=== PATIENT | female | born 1980 | race Two or more races ===

== ENCOUNTER 2022-05-22 14:55 | Observation (INO) | payer MEDICAID, OTHER ==
[2022-05-22] MEDS ORDERED: PREN-96 PO (16:24)
== END 2022-05-22 17:00 | disposition home or self-care (01) ==
LOC: LDRP 14:55
PROVIDERS: ADMIT Obstetrics & Gynecology; ATTEND Obstetrics & Gynecology
DX: O26.893 Other specified pregnancy related conditions, third trimester (principal); R10.9 Unspecified abdominal pain; Z3A.40 40 weeks gestation of pregnancy
CPT/HCPCS: 59025; 81002; 94760; G0378

== ENCOUNTER 2025-03-27 01:42 | Emergency (ER) | payer MEDICAID, OTHER ==
[~2025-03-27] VITALS: Ht 165.1 cm; Wt 71.4 kg
[2025-03-27 01:42] VITALS: BP 108/61; PULSE 91; RESP 20; TEMP 98.7; O2SAT 96
[~2025-03-27 01:42] MED LIST: PREN-96 PO
[2025-03-27 02:27] LABS: Urine Bacteria None Seen /hpf (None Seen)
[2025-03-27 02:30] LABS: Basophils # (auto) 0.1 10 ^3/uL (0-0.2); Basophils % (auto) 0.6 % (0.0-2.0); Eosinophils # (auto) 0.4 10 ^3/uL (0-0.8); Hematocrit 40.6 % (36.0-46.0); Lymphocytes # (auto) 2.1 10 ^3/uL (0.4-5.4); Lymphocytes % (auto) 23.8 % (10.0-50.0); Mean Corpuscular Hemoglobin 30.7 pg (28.0-32.0); Mean Corpuscular Hgb Conc. 34.6 g/dL (32.0-36.0); Mean Corpuscular Volume 88.7 fL (80.0-100.0); Monocytes # (auto) 0.6 10 ^3/uL (0-1.3); Monocytes % (auto) 6.6 % (0.0-12.0); Neutrophils # (auto) 5.6 10 ^3/uL (1.6-8.6); Platelet Count (auto) 300 10^3/uL (140-450); Red Blood Cells 4.57 10^6/uL (4.0-5.20); Red Cell Distribution Width 12.8 % (11.8-14.3); White Blood Cell 8.7 10^3/uL (4.4-10.8)
[2025-03-27 02:35] LABS: Urine Blood 3+ /uL (Negative); Urine Clarity Clear (Clear); Urine Color Colorless (Yellow); Urine Mucus FEW (None Seen); Urine Protein, UAD Negative (Negative); Urine Specific Gravity 1.024 (1.001-1.035); Urine Squamous Epithelial Cell FEW /hpf (<5); Urine Urobilinogen Normal (Negative); Urine WBC 4 /HPF (0-5); Urine pH 5.5 (5.0-9.0)
[2025-03-27 02:38] LABS: Anion Gap 10 (5-15); Carbon Dioxide 24 mmol/L (20-31); Chloride 107 mmol/L (98-107); Potassium 3.5 mmol/L (3.5-5.1); Sodium 141 mmol/L (136-145)
[2025-03-27 02:39] LABS: Calcium 9.8 mg/dL (8.7-10.4)
[2025-03-27 02:44] LABS: BUN/Creatinine Ratio 15.4 (10.0-20.0)
[2025-03-27 02:57] LABS: Blood Urea Nitrogen 8 mg/dL (9-23); Glucose 134 mg/dL (74-106)
--- NOTE | 2025-03-27 04:00 | ED.PDOC ---
History of Present Illness HPI Comments 44 y/o F presents with lower abdominal cramping and mild, abnormal vaginal bleeding. Patient is a Bangladeshi speaker and a poor historian. She states on coming to the ED, due to never seeing a doctor often and wanting to check her status after testing positive with an at-home test, recently. Endorses on this being her tenth (G10, P4, Ab5). Denies any urinary symptoms, nausea, vomiting, fever, or further associated symptoms. 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 Para 4 AB 5 LMP 03/03/25 Family History Family History: Unknown Social History Smoker: Non-Smoker Alcohol: Denies ETOH Use Drugs: Denies Drug Use Lives In: Home All Other Systems: Reviewed and Negative (Comprehensive systems review obtained and negative except for what is stated in the HPI.) Physical Exam General Appearance: No Apparent Distress, Normal HEENT: Normal ENT Inspection, Pharynx Normal, TMs Normal Neck: Full Range of Motion, Non-Tender, Normal, Normal Inspection Respiratory: Chest Non-Tender, Lungs Clear, No Accessory Muscle Use, No Respiratory Distress, Normal Breath Sounds Cardiovascular: No Edema, No JVD, No Murmur, No Gallop, Normal Peripheral Pulses, Regular Rate/Rhythm Breast Exam: Deferred Gastrointestinal: No Organomegaly, Non Tender, No Pulsatile Mass, Normal Bowel Sounds, Soft Genitalia: Deferred Pelvic: Deferred Rectal: Deferred Extremities: No calf tenderness, Normal capillary refill, Normal inspection, Normal range of motion, Non-tender, No pedal edema Musculoskeletal : Apperance: Normal Neurologic: Alert, 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 Was a procedure done?: No Differential Dx Considerations may include: at risk , ovarian cysts, ovarian torsion, ectopic , among others X-Ray, Labs, Meds, VS Vital Signs Date Time Temp Pulse Resp B/P (MAP) Pulse Ox O2 Delivery O2 Flow Rate FiO2 03/27/25 01:42 98.7 91 20 108/61 (77) 96 98.7 Lab Test 03/27/25 02:17 03/27/25 02:07 Range/Units White Blood Count 8.7 4.4-10.8 10^3/uL Red Blood Count 4.57 4.0-5.20 10^6/uL Hemoglobin 14.0 12.2-16.2 g/dL Hematocrit 40.6 36.0-46.0 % Mean Corpuscular Volume 88.7 80.0-100.0 fL Mean Corpuscular Hemoglobin 30.7 28.0-32.0 pg Mean Corpuscular Hemoglobin Concent 34.6 32.0-36.0 g/dL Red Cell Distribution Width 12.8 11.8-14.3 % Platelet Count 300 140-450 10^3/uL Mean Platelet Volume 7.6 6.9-10.8 fL Neutrophils (%) (Auto) 65.0 37.0-80.0 % Lymphocytes (%) (Auto) 23.8 10.0-50.0 % Monocytes (%) (Auto) 6.6 0.0-12.0 % Eosinophils (%) (Auto) 4.0 0.0-7.0 % Basophils (%) (Auto) 0.6 0.0-2.0 % Neutrophils # (Auto) 5.6 1.6-8.6 10 ^3/uL Lymphocytes # (Auto) 2.1 0.4-5.4 10 ^3/uL Monocytes # (Auto) 0.6 0-1.3 10 ^3/uL Eosinophils # (Auto) 0.4 0-0.8 10 ^3/uL Basophils # (Auto) 0.1 0-0.2 10 ^3/uL Nucleated Red Blood Cells 0.0 % Sodium Level 141 136-145 mmol/L Potassium Level 3.5 3.5-5.1 mmol/L Chloride Level 107 98-107 mmol/L Carbon Dioxide Level 24 20-31 mmol/L Anion Gap 10 5-15 Blood Urea Nitrogen 8 L 9-23 mg/dL Creatinine 0.52 L 0.550-1.02 mg/dL Glomerular Filtration Rate Calc 117 >90 mL/min BUN/Creatinine Ratio 15.4 10.0-20.0 Serum Glucose 134 H 74-106 mg/dL Calcium Level 9.8 8.7-10.4 mg/dL Beta HCG, Quantitative 2760.6 H 1.5-4.2 mIU/mL Urine Color Colorless Yellow Urine Clarity Clear Clear Urine pH 5.5 5.0-9.0 Urine Specific [place] 1.024 1.001-1.035 Urine Protein Negative Negative Urine Ketones Negative Negative Urine Blood 3+ H Negative /uL Urine Nitrite Negative Negative Urine Bilirubin Negative Negative Urine Urobilinogen Normal Negative mg/dL Urine Leukocyte Esterase Negative Negative /uL Urine RBC 467 0 - 4 /hpf Urine Microscopic WBC 4 0-5 /HPF Urine Squamous Epithelial Cells Few <5 /hpf Urine Bacteria None seen None Seen /hpf Urine Mucus Few None Seen Urine Glucose Normal Normal mg/dL Time of 1ST Reevaluation: 02:40 Reevaluation 1ST: Unchanged Patient Education/Counseling: Diagnosis, Treatment, Need For Follow Up Family Education/Counseling: No Family Present Departure 1 Departure Time of Disposition: 04:25 (Patient likely with threatened miscarriage. We will discharge patient home with outpatient follow up) Impression: Primary Impression: Threatened miscarriage Disposition: 01 HOME / SELF CARE / HOMELESS Condition: Stable Referrals: EDMUNDO SALAZAR DO Additional Instructions: You have a threatened miscarriage. Your beta hcg level today was 2760. You should follow up with OBGYN within three days to recheck your blood work. If your symptoms worsen or you have any other concerns then please return to the ER. Critical Care Note Critical Care Time?: No Stability Stability form required: No Heart Score Heart Score: Heart Score Response (Comments) Value History N/A 0 EKG N/A 0 Age N/A 0 Risk Factors N/A 0 Troponin N/A 0 Total 0 I personally scribed for NARA VANCE MD ([email or web address]) on 03/27/25 at 04:00. Electronically submitted by Zachery Lema ([email or web address]). NARA VANCE MD Mar 27, 2025 04:00
[2025-03-27] MEDS ORDERED: CEPH250C PO (13:02)
== END 2025-03-27 05:25 | disposition home or self-care (01) ==
LOC: ER 01:46
DX: O20.0 Threatened abortion (principal); Z3A.01 Less than 8 weeks gestation of pregnancy
CPT/HCPCS: 36415; 80048; 81001; 84702; 85025; 86900; 86901

== ENCOUNTER 2025-03-27 09:22 | Emergency (ER) | payer OTHER ==
[~2025-03-27] VITALS: Ht 165.1 cm; Wt 69.8 kg
[2025-03-27 09:59] LABS: Basophils # (auto) 0.1 10 ^3/uL (0-0.2); Basophils % (auto) 0.7 % (0.0-2.0); Eosinophils # (auto) 0.3 10 ^3/uL (0-0.8); Eosinophils % (auto) 4.2 % (0.0-7.0); Hematocrit 38.6 % (36.0-46.0); Hemoglobin 13.3 g/dL (12.2-16.2); Lymphocytes # (auto) 1.7 10 ^3/uL (0.4-5.4); Lymphocytes % (auto) 22.6 % (10.0-50.0); Mean Corpuscular Hemoglobin 30.5 pg (28.0-32.0); Mean Corpuscular Hgb Conc. 34.4 g/dL (32.0-36.0); Mean Corpuscular Volume 88.5 fL (80.0-100.0); Monocytes # (auto) 0.5 10 ^3/uL (0-1.3); Monocytes % (auto) 7.4 % (0.0-12.0); Neutrophils # (auto) 4.8 10 ^3/uL (1.6-8.6); Neutrophils % (auto) 65.1 % (37.0-80.0); Platelet Count (auto) 278 10^3/uL (140-450); Red Blood Cells 4.36 10^6/uL (4.0-5.20); Red Cell Distribution Width 12.6 % (11.8-14.3); White Blood Cell 7.4 10^3/uL (4.4-10.8)
[2025-03-27 10:13] LABS: Urine Bacteria None Seen /hpf (None Seen)
[2025-03-27 10:23] LABS: Urine Blood 3+ /uL (Negative); Urine Clarity Turbid (Clear); Urine Color Light-Orange (Yellow); Urine Mucus MODERATE (None Seen); Urine Protein, UAD 1+ (Negative); Urine Specific Gravity 1.029 (1.001-1.035); Urine Squamous Epithelial Cell FEW /hpf (<5); Urine Urobilinogen Normal (Negative); Urine WBC 23 /HPF (0-5); Urine pH 5.5 (5.0-9.0)
--- NOTE | 2025-03-27 10:56 | ED.PDOC ---
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 Patient states she was seen in this ED earlier today (03/27/25), noticed bleeding has worsen, returned to ED. Patient states she is currently , does not know how far along, recently tested positive with an at home test. P:4 A:5. Denies any PMHx as well as headache, dizziness, nausea, vomiting, diarrhea, chest pain,shortness of breath. No other symptoms or modifying factors present at this time. Chief Complaint: Vaginal Bleed Time Seen by MD: 10:40 Reviewed Notes: Medications, Allergies Allergies: Coded Allergies: NO KNOWN ALLERGIES (Unverified , 05/22/22) Home Meds Active Scripts Cephalexin (KEFLEX CAPSULE) 250 Mg Cp, 250 MG PO QID for 5 Days, #20 BOTTLE Prov:GILBERT RODRÍGUEZ MD 03/27/25 Reported Medications Vit W/ Ferrous Fumara ( One Daily) Daily Tab, 1 TAB PO DAILY, #90 TAB 3 Refills 05/22/22 Information Source: Patient Mode of Arrival: Ambulatory Timing: Hours Prehospital treatment: None Severity: Moderate Vaginal Discharge: None Vaginal Lesions: None Bleeding Quality: Bright Red, Clotted Vaginal Mass: None Onset Of Mass/Bleeding: Spontaneous Sexual Activity: Last Consensual [place]: Unknown Control: None History of: Current Symptoms of Possible : Missed Period Associated Signs and Symptoms: Vaginal Bleeding, Abdominal Pain Past Medical History PAST MEDICAL HISTORY: Denies Surgical History: Denies all surgeries RN BARIATRIC History: Denies all RN BARIATRIC Hx Family History Family History: Unknown Social History Smoker: Non-Smoker Alcohol: Denies ETOH Use Drugs: Denies Drug Use Lives In: Home Constitutional: denies: chills, diaphoresis, fatigue, fever, malaise, sweats, weakness, others EENTM: denies: blurred vision, double vision, ear bleeding, ear discharge, ear drainage, ear pain, ear ringing, eye pain, eye redness, hearing loss, mouth pain, mouth swelling, nasal discharge, nose bleeding, nose congestion, nose pain, photophobia, tearing, throat pain, throat swelling, voice changes, others Respiratory: denies: cough, hemoptysis, orthopnea, SOB at rest, shortness of breath, SOB with excertion, stridor, wheezing, others Cardiovascular: denies: chest pain, dizzy spells, diaphoresis, Dyspnea on exertion, edema, irregular heart beat, left arm pain, lightheadedness, palpita tions, PND, syncope, others Gastrointestinal: reports: abdominal pain; denies: abdomen distended, blood streaked bowels, constipated, diarrhea, dysphagia, difficulty swallowing, hematemesis, melena, nausea, poor appetite, poor fluid intake, rectal bleeding, rectal pain, vomiting, others Genitourinary: reports: abnormal vagina bleeding, ; denies: burning, dyspareunia, dysuria, flank pain, frequency, hematuria, incontinence, pain, vagina discharge, urgency, others Neurological: denies: dizziness, fainting, headache, left sided numbness, left sided weakness, numbness, paresthesia, pre-existing deficit, right sided numbness, right sided weakness, seizure, speech problems, tingling, tremors, weakness, others Musculoskeletal: denies: back pain, gout, joint pain, joint swelling, muscle pain, muscle stiffness, neck pain, others Integumetry: denies: bruises, change in color, change in hair/nails, dryness, laceration, lesions, lumps, rash, wounds, others Allergic/Immunocompromised: denies: Difficulty Healing, Frequent Infections, Hives, Itching, others Hematologic/Lymphatic: denies: anemia, blood clots, easy bleeding, easy bruising, swollen glands, others Endocrine: denies: excessive hunger, excessive sweating, excessive thirst, excessive urination, flushing, intolerance to cold, intolerance to heat, unexplained weight gain, unexplained weight loss, others Psychiatric: denies: anxiety, bipolar disorder, depression, hopeless, panic disorder, schizophrenia, sleepless, suicidal, others All Other Systems: Reviewed and Negative Physical Exam General Appearance: Moderate Distress, Normal HEENT: Normal ENT Inspection, Pharynx Normal, TMs Normal Neck: Full Range of Motion, Non-Tender, Normal, Normal Inspection Respiratory: Chest Non-Tender, Lungs Clear, No Accessory Muscle Use, No Respiratory Distress, Normal Breath Sounds Cardiovascular: No Edema, No JVD, No Murmur, No Gallop, Normal Peripheral Pulses, Regular Rate/Rhythm Breast Exam: Deferred Gastrointestinal: No Organomegaly, Non Tender, No Pulsatile Mass, Normal Bowel Sounds, Soft Genitalia: Deferred Pelvic: Deferred Rectal: Deferred Extremities: No calf tenderness, Normal capillary refill, Normal inspection, Normal range of motion, Non-tender, No pedal edema Musculoskeletal : Apperance: Normal Neurologic: Alert, 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 Was a procedure done?: No Differential Diagnosis (RN BARIATRIC) Vaginal Bleeding: - Complete, - Incomplete, - In evitable, - Missed, - Threatened X-Ray, Labs, Meds, VS Vital Signs Date Time Temp Pulse Resp B/P (MAP) Pulse Ox O2 Delivery O2 Flow Rate FiO2 03/27/25 12:42 98.3 78 16 137/68 (91) 98 98.3 03/27/25 10:26 80 16 95 Room Air 03/27/25 10:26 98.3 94 16 134/80 (98) 95 98.3 03/27/25 09:34 98.5 91 17 106/62 (77) 95 98.5 Lab Test 03/27/25 09:50 03/27/25 09:40 Range/Units White Blood Count 7.4 4.4-10.8 10^3/uL Red Blood Count 4.36 4.0-5.20 10^6/uL Hemoglobin 13.3 12.2-16.2 g/dL Hematocrit 38.6 36.0-46.0 % Mean Corpuscular Volume 88.5 80.0-100.0 fL Mean Corpuscular Hemoglobin 30.5 28.0-32.0 pg Mean Corpuscular Hemoglobin Concent 34.4 32.0-36.0 g/dL Red Cell Distribution Width 12.6 11.8-14.3 % Platelet Count 278 140-450 10^3/uL Mean Platelet Volume 7.5 6.9-10.8 fL Neutrophils (%) (Auto) 65.1 37.0-80.0 % Lymphocytes (%) (Auto) 22.6 10.0-50.0 % Monocytes (%) (Auto) 7.4 0.0-12.0 % Eosinophils (%) (Auto) 4.2 0.0-7.0 % Basophils (%) (Auto) 0.7 0.0-2.0 % Neutrophils # (Auto) 4.8 1.6-8.6 10 ^3/uL Lymphocytes # (Auto) 1.7 0.4-5.4 10 ^3/uL Monocytes # (Auto) 0.5 0-1.3 10 ^3/uL Eosinophils # (Auto) 0.3 0-0.8 10 ^3/uL Basophils # (Auto) 0.1 0-0.2 10 ^3/uL Nucleated Red Blood Cells 0.0 % Urine Color Light-orange Yellow Urine Clarity Turbid H Clear Urine pH 5.5 5.0-9.0 Urine Specific [place] 1.029 1.001-1.035 Urine Protein 1+ H Negative Urine Ketones Negative Negative Urine Blood 3+ H Negative /uL Urine Nitrite Negative Negative Urine Bilirubin Negative Negative Urine Urobilinogen Normal Negative mg/dL Urine Leukocyte Esterase Trace Negative /uL Urine RBC 2842 0 - 4 /hpf Urine Microscopic WBC 23 H 0-5 /HPF Urine Squamous Epithelial Cells Few <5 /hpf Urine Bacteria None seen None Seen /hpf Urine Mucus Moderate None Seen Urine Glucose Normal Normal mg/dL Patient alert. Came in because of nausea. Abdomen is soft nontender. Vitals stable. Answering questions. WBC within normal limits. Hemoglobin within normal limits. Reviewed her previous visit. Just left the ER. Early pain Ultrasound was not done because it is too early no cramping no active bleeding patient comfortable. Beta hCG was done few hours ago during her last visit. Urinalysis shows UTI. Was given prescription of Keflex antibiotic. Explained to the patient. Was told to follow up with her primary care physician. Was told to come back if there is any problem. Time of 1ST Reevaluation: 11:10 Reevaluation 1ST: Improved Patient Education/Counseling: Diagnosis, Treatment, Prognosis Family Education/Counseling: No Family Present Departure 1 Departure Time of Disposition: 13:01 Impression: Primary Impression: Bleeding in early Additional Impression: Urinary tract infection Qualified Codes: N30.01 - Acute cystitis with hematuria Disposition: HOME / SELF CARE / HOMELESS Condition: Good e-Prescriptions Cephalexin (KEFLEX CAPSULE) 250 Mg Cp 250 MG PO QID for 5 Days, #20 BOTTLE Prov: GILBERT RODRÍGUEZ MD 03/27/25 Discharged With: Self Critical Care Note Critical Care Time?: No Stability Stability form required: No Heart Score Heart Score: Heart Score Response (Comments) Value History N/A 0 EKG N/A 0 Age N/A 0 Risk Factors N/A 0 Troponin N/A 0 Total 0 I personally scribed for GILBERT RODRÍGUEZ MD ([email or web address]) on 03/27/25 at 10:56. Electronically submitted by Holley Mcclain ([email or web address]). GILBERT RODRÍGUEZ MD Mar 27, 2025 10:56
[2025-03-27 12:42] VITALS: BP 137/68; PULSE 78; RESP 16; TEMP 98.3; O2SAT 98
[2025-03-27] MEDS ORDERED: CEPH250C PO (13:02)
== END 2025-03-27 13:54 | disposition home or self-care (01) ==
LOC: ER 09:22
DX: O20.9 Hemorrhage in early pregnancy, unspecified (principal); O23.41 Unspecified infection of urinary tract in pregnancy, first trimester; N39.0 Urinary tract infection, site not specified; Z3A.01 Less than 8 weeks gestation of pregnancy
CPT/HCPCS: 36415; 81001; 85025